=== PATIENT | male | born 1985 | race Caucasian/White ===

== ENCOUNTER 2023-06-07 16:01 | Emergency (ER) | payer SELFPAY ==
[~2023-06-07] VITALS: Ht 177.8 cm; Wt 99.8 kg
[~2023-06-07 16:01] MED LIST: CARAFATE1 G1 PO; CATAFLAM50 MG PO; CEPHALEXIN500 M1 PO; FLEXERIL5 MG PO; LIDEX0.05% T; NKHM; PERCOCET 325 MG1 TA2 PO; PREDNICOT20 MG PO; SUNMARK OMEPRAZ20 MG PO; ZOFRAN4 MG PO
[2023-06-07] MEDS ORDERED: SODIUM CHLORIDE 0.9% 1,000 ML IV ONE (16:15)
[2023-06-07] MEDS ORDERED: EPINEPHrine Hydrochloride 1 MG/ML AMP IM ONE (16:15)
[2023-06-07] MEDS ORDERED: methylPREDNISolone sod succ 125 MG VIAL IV ONE (16:20)
[2023-06-07] MEDS ORDERED: diphenhydrAMINE hydrochloride 50 MG/ML VIAL IV ONE (16:20)
[2023-06-07] MEDS ORDERED: FAMOTIDINE 50 ML IV ONE (16:20)
[2023-06-07 16:27] LABS: BASO % 0.5 % (0.0-1.0); EOS # 0.1 10*3/uL (0.0-0.4); HEMATOCRIT 48.3 % (42.0-52.0); LYMPH # 1.4 10*3/uL (1.3-4.4); LYMPH % 23.3 % (27.0-41.0); MEAN CELL VOLUME 89.3 fl (80.0-94.0); MEAN CORPUSCULAR HGB 30.5 pg (27.0-31.0); MEAN CORPUSCULAR HGB CONC 34.2 g/dl (33.0-37.0); MEAN PLATELET VOLUME 9.6 fl (9.6-12.3); MONO # 0.5 10*3/uL (0.1-1.0); MONO % 7.6 % (3.0-9.0); NEUT % 66.3 % (47.0-73.0); PLATELET COUNT AUTOMATED 220 10*3/uL (130-400); RED BLOOD COUNT 5.41 10*6/uL (4.50-5.90); RED CELL DISTRI WIDTH 12.3 % (0-14.5)
[2023-06-07 16:48] LABS: ALKALINE PHOSPHATASE 88 U/L (46-116); BUN 10 mg/dl (9-23); CHLORIDE 107 mmol/L (98-107); POTASSIUM 4.2 mmol/L (3.4-5.1); SGPT/ALT 162 U/L (5-49); TOTAL PROTEIN 7.2 gm/dL (6.0-8.0)
[2023-06-07] MEDS ORDERED: EPIPEN 2-P0.3 MG/0.3 IJ (16:52)
[2023-06-07] MEDS ORDERED: PREDNISONE20 M1 PO (16:52)
== END 2023-06-07 17:10 | disposition home or self-care (01) ==
LOC: ED 16:01
PROVIDERS: Emergency Medicine
DX: T78.2XXA Anaphylactic shock, unspecified, initial encounter (principal); L50.9 Urticaria, unspecified; Z98.890 Other specified postprocedural states

== ENCOUNTER 2023-11-29 20:58 | Emergency (ER) | payer SELFPAY ==
[~2023-11-29] VITALS: Ht 177.8 cm; Wt 99.8 kg
[~2023-11-29 20:58] MED LIST changes: +EPIPEN 2-P0.3 MG/0.3 IJ; +PREDNISONE20 M1 PO
[2023-11-29] MEDS ORDERED: Bacitracin Zinc 14 GM TUBE T ONE (21:35)
[2023-11-29] MEDS ORDERED: Lidocaine Hydrochloride 2% 10 ML AMP SC ONE (21:35)
== END 2023-11-29 23:00 | disposition home or self-care (01) ==
LOC: ED 20:58
DX: S01.511A Laceration without foreign body of lip, initial encounter (principal); Z98.890 Other specified postprocedural states; W10.8XXA Fall (on) (from) other stairs and steps, initial encounter; Y93.89 Activity, other specified; Y92.89 Other specified places as the place of occurrence of the external cause; Y99.8 Other external cause status